=== PATIENT | female | born 1990 | race Caucasian/White ===

== ENCOUNTER 2017-11-06 11:33 | Emergency (ER) | payer MEDICAID, OTHER ==
[~2017-11-06] VITALS: Ht 170.2 cm; Wt 127.0 kg
[2017-11-06] MEDS ORDERED: IPRATROPIUM BROMIDE (0.02%) 0.5MG/2.5ML NEB HHN STA (11:52)
[2017-11-06] MEDS ORDERED: ALBUTEROL (0.083%) 2.5MG/3ML NEB HHN STA (11:52)
[2017-11-06] MEDS ORDERED: METHYLPREDNISOLONE SOD SUCC 125 MG/2 ML VIAL IV STA (11:52)
[2017-11-06 16:06] VITALS: BP 111/58
== END 2017-11-06 16:11 | disposition home or self-care (01) ==
LOC: ER 11:44
DX: J45.901 Unspecified asthma with (acute) exacerbation (principal); I10 Essential (primary) hypertension; I51.7 Cardiomegaly
CPT/HCPCS: 71045; 81025; 93005; 94644; 96374; 99285; J2930; J7611; Z7610

== ENCOUNTER 2017-12-28 11:57 | Emergency (ER) | payer OTHER ==
[~2017-12-28] VITALS: Ht 170.2 cm; Wt 128.0 kg
[2017-12-28] MEDS ORDERED: IBUPROFEN 600MG TABLET PO STA (13:05)
[2017-12-28] MEDS ORDERED: SODIUM CHLORIDE 0.9% 1,000 ML IV ONE (13:05)
[2017-12-28 13:30] LABS: CLARITY URINE CLEAR (CLEAR); COLOR URINE YELLOW (YELLOW); KETONES URINE NEGATIVE (NEGATIVE); LEUKOCYTE ESTERASE URINE 1+ (NEGATIVE); NITRITE URINE NEGATIVE (NEGATIVE); OCCULT BLOOD URINE TRACE (NEGATIVE); PH URINE 6.5 (4.5-8.0); PROTEIN URINE 2+ (NEGATIVE); SPECIFIC GRAVITY URINE 1.016 (1.005-1.030)
[2017-12-28 13:31] LABS: BASOPHILS % 0.7 % (0.0-2.0); EOSINOPHILS % 1.4 % (0.0-5.0); HEMATOCRIT. 39.7 % (36.0-48.0); HEMOGLOBIN. 14.2 g/dL (12.0-16.0); LYMPHOCYTES % 22.9 % (20.0-50.0); MEAN CORPUSCULAR HEMOGLOBIN 31.3 pg (28.0-32.0); MEAN CORPUSCULAR VOLUME 87.8 fL (81.0-99.0); MEAN PLATELET VOLUME 8.9 fl (7.4-10.4); MONOCYTES % 3.3 % (2.0-8.0); NEUTROPHILS % 71.7 % (40.0-76.0); PLATELET 269 x1000/uL (130-400); RED BLOOD CELL COUNT 4.52 mill/uL (4.2-5.4); RED CELL DISTRIBUTION WIDTH 12.7 % (11.6-14.6)
[2017-12-28 13:35] LABS: PROTHROMBIN TIME 9.9 sec (9.1-11.1)
[2017-12-28 13:36] LABS: CHLORIDE 104 mEq/L (98-107)
[2017-12-28 15:30] VITALS: BP 138/82
== END 2017-12-28 16:28 | disposition home or self-care (01) ==
LOC: ER 11:57
DX: N10 Acute pyelonephritis (principal); J45.909 Unspecified asthma, uncomplicated; I10 Essential (primary) hypertension; E03.9 Hypothyroidism, unspecified
CPT/HCPCS: 36415; 80053; 81003; 81025; 83690; 85025; 85610; 87077; 87086; 87186; 99284; J7030

== ENCOUNTER 2018-01-29 17:52 | Emergency (ER) | payer OTHER ==
[~2018-01-29] VITALS: Ht 170.2 cm; Wt 124.9 kg
[2018-01-29 20:38] VITALS: BP 138/87
== END 2018-01-29 21:10 | disposition home or self-care (01) ==
LOC: ER 21:06
DX: J45.909 Unspecified asthma, uncomplicated (principal); I10 Essential (primary) hypertension; E03.9 Hypothyroidism, unspecified
CPT/HCPCS: 99283

== ENCOUNTER 2018-02-01 06:19 | Emergency (ER) | payer OTHER ==
[~2018-02-01] VITALS: Ht 170.2 cm; Wt 124.0 kg
[2018-02-01] MEDS ORDERED: METHYLPREDNISOLONE SOD SUCC 125 MG/2 ML VIAL IM STA (06:36)
[2018-02-01] MEDS ORDERED: IPRATROPIUM BROMIDE (0.02%) 0.5MG/2.5ML NEB HHN STA (06:36)
[2018-02-01] MEDS ORDERED: ALBUTEROL (0.083%) 2.5MG/3ML NEB HHN STA (06:36)
[2018-02-01 08:50] VITALS: BP 138/79
== END 2018-02-01 09:11 | disposition home or self-care (01) ==
LOC: ER 06:19
DX: J45.901 Unspecified asthma with (acute) exacerbation (principal); I10 Essential (primary) hypertension; E03.9 Hypothyroidism, unspecified; J45.909 Unspecified asthma, uncomplicated
CPT/HCPCS: 94640; 96372; 99283; J2930; J7611

== ENCOUNTER 2018-05-26 03:44 | Emergency (ER) | payer MEDICAID, OTHER ==
[~2018-05-26] VITALS: Ht 170.2 cm; Wt 125.4 kg
[2018-05-26] MEDS ORDERED: PREDNISONE 20MG TABLET PO ONE (06:45)
[2018-05-26] MEDS ORDERED: ALBUTEROL (0.083%) 2.5MG/3ML NEB HHN ONE (06:45)
[2018-05-26 09:04] VITALS: BP 132/68
== END 2018-05-26 09:07 | disposition home or self-care (01) ==
LOC: ER 07:39
DX: J45.901 Unspecified asthma with (acute) exacerbation (principal); E03.9 Hypothyroidism, unspecified
CPT/HCPCS: 94640; 99283; J7512; J7611

== ENCOUNTER 2018-06-04 06:42 | Emergency (ER) | payer MEDICAID ==
[~2018-06-04] VITALS: Ht 172.7 cm; Wt 90.0 kg
[2018-06-04] MEDS ORDERED: IPRATROPIUM BROMIDE (0.02%) 0.5MG/2.5ML NEB HHN STA (07:57)
[2018-06-04] MEDS ORDERED: PREDNISONE 20MG TABLET PO STA (07:57)
[2018-06-04] MEDS: ALBUTEROL (0.083%) 2.5MG/3ML NEB HHN SCH ×2 (08:10→08:35)
[2018-06-04 10:14] VITALS: BP 133/75
== END 2018-06-04 10:15 | disposition home or self-care (01) ==
LOC: ER 06:42
DX: J45.901 Unspecified asthma with (acute) exacerbation (principal); I10 Essential (primary) hypertension; E03.9 Hypothyroidism, unspecified
CPT/HCPCS: 71045; 81025; 94640; 99285; J7512; J7611

== ENCOUNTER 2018-08-28 20:19 | Emergency (ER) | payer MEDICAID ==
[~2018-08-28] VITALS: Ht 170.2 cm; Wt 125.4 kg
[2018-08-28] MEDS ORDERED: ALBUTEROL (0.083%) 2.5MG/3ML NEB HHN NR (23:09)
[2018-08-28] MEDS ORDERED: METHYLPREDNISOLONE SOD SUCC 125 MG/2 ML VIAL IM NR (23:09)
[2018-08-28] MEDS ORDERED: IPRATROPIUM BROMIDE (0.02%) 0.5MG/2.5ML NEB HHN NR (23:09)
[2018-08-29 00:29] VITALS: BP 145/72
== END 2018-08-29 00:29 | disposition home or self-care (01) ==
LOC: ER 20:19
DX: J45.901 Unspecified asthma with (acute) exacerbation (principal)
CPT/HCPCS: 81025; 94640; 96372; 99283; J2930; J7611

== ENCOUNTER 2018-11-19 19:07 | Emergency (ER) | payer SELFPAY ==
[~2018-11-19] VITALS: Ht 165.1 cm; Wt 127.0 kg
[2018-11-19] MEDS ORDERED: KETOROLAC 15MG/ML VIAL IM ONE (20:15)
[2018-11-19 22:02] LABS: BASOPHILS % 0.5 % (0.0-2.0); EOSINOPHILS % 1.1 % (0.0-5.0); HEMATOCRIT. 40.3 % (36.0-48.0); HEMOGLOBIN. 14.2 g/dL (12.0-16.0); MEAN CORPUSCULAR HEMOGLOBIN 31.2 pg (28.0-32.0); MEAN CORPUSCULAR VOLUME 88.5 fL (81.0-99.0); MEAN PLATELET VOLUME 8.7 fl (7.4-10.4); NEUTROPHILS % 73.4 % (40.0-76.0); PLATELET 250 x1000/uL (130-400); RED BLOOD CELL COUNT 4.55 mill/uL (4.2-5.4); RED CELL DISTRIBUTION WIDTH 12.9 % (11.6-14.6)
[2018-11-19 22:04] LABS: CHLORIDE 106 mEq/L (98-107)
[2018-11-19 22:29] LABS: CLARITY URINE CLOUDY (CLEAR); COLOR URINE YELLOW (YELLOW); KETONES URINE NEGATIVE (NEGATIVE); LEUKOCYTE ESTERASE URINE NEGATIVE (NEGATIVE); NITRITE URINE NEGATIVE (NEGATIVE); OCCULT BLOOD URINE NEGATIVE (NEGATIVE); PROTEIN URINE NEGATIVE (NEGATIVE); SPECIFIC GRAVITY URINE 1.022 (1.005-1.030)
[2018-11-19] MEDS ORDERED: IOHEXOL-300 100 ML BOTTLE ONE (23:27)
[2018-11-20 00:41] VITALS: BP 123/80
== END 2018-11-20 00:47 | disposition home or self-care (01) ==
LOC: ER 19:07
DX: S20.212A Contusion of left front wall of thorax, initial encounter (principal); S30.1XXA Contusion of abdominal wall, initial encounter; I10 Essential (primary) hypertension; J45.909 Unspecified asthma, uncomplicated; E03.9 Hypothyroidism, unspecified; V43.52XA Car driver injured in collision with other type car in traffic accident, initial encounter; Y93.89 Activity, other specified; Y92.414 Local residential or business street as the place of occurrence of the external cause
CPT/HCPCS: 36415; 71045; 74177; 80053; 81003; 81025; 85025; 93005; 96372; 99284; J1885; Q9967

== ENCOUNTER 2019-02-22 11:01 | Emergency (ER) | payer SELFPAY ==
[~2019-02-22] VITALS: Ht 162.6 cm; Wt 127.0 kg
[2019-02-22] MEDS ORDERED: IPRATROPIUM BROMIDE (0.02%) 0.5MG/2.5ML NEB HHN STA (11:26)
[2019-02-22] MEDS ORDERED: PREDNISONE 20MG TABLET PO STA (11:26)
[2019-02-22] MEDS ORDERED: ALBUTEROL (0.083%) 2.5MG/3ML NEB HHN STA (11:26)
[2019-02-22 13:28] VITALS: BP 129/74
== END 2019-02-22 13:44 | disposition home or self-care (01) ==
LOC: ER 11:46
DX: J45.901 Unspecified asthma with (acute) exacerbation (principal); I10 Essential (primary) hypertension; E03.9 Hypothyroidism, unspecified
CPT/HCPCS: 94644; 99285; J7512; J7611; Z7610

== ENCOUNTER 2020-04-21 02:45 | Emergency (ER) | payer SELFPAY ==
[~2020-04-21] VITALS: Ht 170.2 cm; Wt 127.0 kg
[2020-04-21] MEDS ORDERED: PREDNISONE 20MG TABLET PO STA (03:53)
[2020-04-21] MEDS ORDERED: IPRATROPIUM BROMIDE (0.02%) 0.5MG/2.5ML NEB HHN STA (03:53)
[2020-04-21] MEDS ORDERED: ALBUTEROL (0.083%) 2.5MG/3ML NEB HHN STA (03:53)
[2020-04-21 06:51] VITALS: BP 137/92
== END 2020-04-21 07:10 | disposition home or self-care (01) ==
LOC: ER 02:45
DX: J45.901 Unspecified asthma with (acute) exacerbation (principal); I10 Essential (primary) hypertension; E03.9 Hypothyroidism, unspecified; E66.9 Obesity, unspecified; Z68.41 Body mass index [BMI] 40.0-44.9, adult
CPT/HCPCS: 71045; 81025; 94640; 99283; J7512; Z7610

== ENCOUNTER 2020-09-04 05:50 | Emergency (ER) | payer SELFPAY ==
[~2020-09-04] VITALS: Ht 170.2 cm; Wt 132.0 kg
[2020-09-04 05:59] VITALS: BP 173/117
== END 2020-09-04 10:01 | disposition left against medical advice (07) ==
LOC: ER 05:50
DX: H92.01 Otalgia, right ear (principal); Z53.21 Procedure and treatment not carried out due to patient leaving prior to being seen by health care provider

== ENCOUNTER 2024-07-28 04:48 | Inpatient (IN) | payer OTHER ==
[~2024-07-28] VITALS: Ht 170.2 cm; Wt 141.1 kg
[2024-07-28] MEDS ORDERED: DEXAMETHASONE 2MG TABLET PO ONE (05:30)
[2024-07-28 05:32] VITALS: PULSE 101; RESP 16; O2SAT 98
[2024-07-28] MEDS: ALBUTEROL (0.5%) 2.5MG/0.5ML NEB HHN ONE (05:32)
[2024-07-28] MEDS: IPRATROPIUM BROMIDE (0.02%) 0.5MG/2.5ML NEB HHN ONE (05:32)
[2024-07-28 06:02] LABS: BASOPHILS % 0.9 % (0.0-2.0); EOSINOPHILS % 1.5 % (0.0-5.0); HEMATOCRIT. 44.1 % (36.0-48.0); HEMOGLOBIN. 15.2 g/dL (12.0-16.0); LYMPHOCYTES % 24.6 % (20.0-50.0); MEAN CORPUSCULAR HEMOGLOBIN 30.8 pg (28.0-32.0); MEAN CORPUSCULAR HGB CONC 34.6 g/dL (31.0-37.0); MEAN CORPUSCULAR VOLUME 89.1 fL (81.0-99.0); MEAN PLATELET VOLUME 8.7 fl (7.4-10.4); MONOCYTES % 4.3 % (2.0-8.0); NEUTROPHILS % 68.7 % (40.0-76.0); PLATELET 247 x1000/uL (130-400); RED BLOOD CELL COUNT 4.95 mill/uL (4.2-5.4); RED CELL DISTRIBUTION WIDTH 13.4 % (11.6-14.6); WHITE BLOOD COUNT 9.1 x1000/uL (4.5-11.0)
[2024-07-28 06:15] LABS: CHLORIDE 106 mEq/L (98-107); POTASSIUM 3.3 mEq/L (3.5-5.1); SODIUM 140 mEq/L (136-145)
[2024-07-28 06:16] LABS: CARBON DIOXIDE 24 mEq/L (21-32)
[2024-07-28 06:17] LABS: CALCIUM 8.7 mg/dL (8.7-10.4)
[2024-07-28] MEDS: LACTATED RINGERS 1,000 ML IV SCH (06:17)
[2024-07-28] MEDS: MAGNESIUM 2 G PREMIX 50 ML IV ONE (06:18)
[2024-07-28 06:22] LABS: GLUCOSE 147 mg/dL (70-105); UREA NITROGEN BLOOD 10 mg/dL (9-23)
[2024-07-28 06:23] LABS: TROPONIN I HIGH SENSITIVITY 23 ng/L (3.0-34)
[2024-07-28 06:25] LABS: CREATININE 0.7 mg/dL (0.6-1.0)
[2024-07-28] MEDS: DEXAMETHASONE 4MG TABLET PO NR (06:25)
[2024-07-28 06:30] LABS: HCG SCREEN NEGATIVE
[2024-07-28 08:06] LABS: TROPONIN I HIGH SENSITIVITY 23 ng/L (3.0-34)
[2024-07-28] MEDS ORDERED: IPRATROPIUM/ALBUTEROL 0.5-3(2.5)MG/3ML NEB HHN PRN (10:30)
[2024-07-28] MEDS ORDERED: ACETAMINOPHEN 325MG TABLET PO PRN (10:30)
[2024-07-28] MEDS ORDERED: ONDANSETRON HCL 4MG/2ML INJ IV PRN (10:30)
[2024-07-28] MEDS ORDERED: DEXTROSE 50% WATER 50ML SYRINGE IV PRN (10:30)
[2024-07-28 11:02] LABS: LDL CHOLESTEROL 153 mg/dL (5-100); TRIGLYCERIDE 125 mg/dL (0-150)
[2024-07-28 11:03] LABS: ALANINE AMINOTRANSFERASE 63 IU/L (10-49); ALBUMIN 3.7 g/dL (3.2-4.8); ASPARTATE AMINOTRANSFERASE 61 IU/L (<34); BILIRUBIN DIRECT 0.2 mg/dL (<=3.0); CHOLESTEROL 215 mg/dL (<200); HDL CHOLESTEROL 42 mg/dL (>65)
[2024-07-28 11:04] LABS: BILIRUBIN TOTAL 0.7 mg/dL (0.1-1.0); PROTEIN TOTAL 7.1 g/dL (6.0-8.3)
[2024-07-28] MEDS: MAGNESIUM 2 G PREMIX 50 ML IV NR (11:30)
[2024-07-28] MEDS: POTASSIUM CHLORIDE 20MEQ TABLET SR PO NR (12:07)
[2024-07-28] MEDS: AMLODIPINE 10MG TABLET PO SCH (12:07)
[2024-07-28] MEDS: CLONIDINE 0.1MG TABLET PO PRN (12:46)
[2024-07-28] MEDS: BLOOD SUGAR DIAGNOSTIC STRIP TEST SCH (13:00)
[2024-07-28 13:07] VITALS: PULSE 94; RESP 17; O2SAT 99
[2024-07-28 17:40] VITALS: BP 119/65; PULSE 109; RESP 22; TEMP 37
[2024-07-28] MEDS ORDERED: FLUT1BLS8 IH (18:52)
[2024-07-28 20:00] VITALS: BP 119/67; PULSE 105; RESP 20; TEMP 35.8; O2SAT 97
[2024-07-28] MEDS: IPRATROPIUM/ALBUTEROL 0.5-3(2.5)MG/3ML NEB HHN SCH (22:03)
[2024-07-28] MEDS: BUDESONIDE 0.5MG/2ML NEB HHN SCH (22:06)
[2024-07-28 22:09] VITALS: PULSE 91; RESP 16; O2SAT 97
[2024-07-29] VITALS (10 sets, daily range): BP systolic 117–146; BP diastolic 66–92; PULSE 86–108; RESP 14–18; TEMP 36.1–37.3; O2SAT 94–99
[2024-07-29 06:15] LABS: BASOPHILS % 0.1 % (0.0-2.0); HEMATOCRIT. 41.1 % (36.0-48.0); HEMOGLOBIN. 14.1 g/dL (12.0-16.0); LYMPHOCYTES % 14.2 % (20.0-50.0); MEAN CORPUSCULAR HEMOGLOBIN 30.2 pg (28.0-32.0); MEAN CORPUSCULAR HGB CONC 34.5 g/dL (31.0-37.0); MEAN CORPUSCULAR VOLUME 87.7 fL (81.0-99.0); MEAN PLATELET VOLUME 9.1 fl (7.4-10.4); MONOCYTES % 4.8 % (2.0-8.0); NEUTROPHILS % 80.9 % (40.0-76.0); PLATELET 259 x1000/uL (130-400); RED BLOOD CELL COUNT 4.68 mill/uL (4.2-5.4); RED CELL DISTRIBUTION WIDTH 13.5 % (11.6-14.6); WHITE BLOOD COUNT 13.3 x1000/uL (4.5-11.0)
[2024-07-29 06:16] LABS: CALCIUM 9.4 mg/dL (8.7-10.4); CARBON DIOXIDE 24 mEq/L (21-32); CHLORIDE 104 mEq/L (98-107); POTASSIUM 3.8 mEq/L (3.5-5.1); SODIUM 139 mEq/L (136-145)
[2024-07-29 06:22] LABS: CREATININE 0.6 mg/dL (0.6-1.0); GLUCOSE 156 mg/dL (70-105); UREA NITROGEN BLOOD 15 mg/dL (9-23)
[2024-07-29] MEDS: PREDNISONE 20MG TABLET PO SCH (08:42)
[2024-07-29 10:09] LABS: THYROID STIMULATING HORMONE 2.04 uIU/mL (0.55-4.78)
[2024-07-29 10:11] LABS: T4 FREE 1.37 ng/dL (0.89-1.76)
[2024-07-29 17:54] LABS: LACTIC ACID 3.2 mmol/L (0.4-2.0)
[2024-07-29 19:18] LABS: INFLUENZA TYPE A Presumptive Negative (Pres. Neg.); INFLUENZA TYPE B Presumptive Negative (Pres. Neg.)
[2024-07-29] MEDS: DOXYCYCLINE 100MG/100ML 100 ML IV SCH (20:20)
[2024-07-29] MEDS: CEFTRIAXONE 1GM/50ML 50 ML IV SCH (20:21)
[2024-07-29] MEDS: IPRATROPIUM BROMIDE (0.02%) 0.5MG/2.5ML NEB HHN SCH (21:29)
[2024-07-30] VITALS (8 sets, daily range): BP systolic 114–166; BP diastolic 71–102; PULSE 51–108; RESP 14–20; TEMP 36.2–36.7; O2SAT 94–97
[2024-07-30 07:36] LABS: HEMATOCRIT 49.5 % (36.0-48.0); HEMOGLOBIN 16.9 g/dL (12.0-16.0); MEAN CORPUSCULAR HEMOGLOBIN 30.2 pg (28.0-32.0); MEAN CORPUSCULAR HGB CONC 34.2 g/dL (31.0-37.0); MEAN CORPUSCULAR VOLUME 88.4 fL (81.0-99.0); PLATELET 316 x1000/uL (130-400); RED CELL DISTRIBUTION WIDTH 13.6 % (11.6-14.6); WHITE BLOOD COUNT 16.8 x1000/uL (4.5-11.0)
[2024-07-30 07:38] LABS: CHLORIDE 101 mEq/L (98-107); POTASSIUM 3.5 mEq/L (3.5-5.1); SODIUM 139 mEq/L (136-145)
[2024-07-30 07:40] LABS: CARBON DIOXIDE 24 mEq/L (21-32)
[2024-07-30 07:41] LABS: CALCIUM 9.7 mg/dL (8.7-10.4)
[2024-07-30 07:45] LABS: CREATININE 0.7 mg/dL (0.6-1.0)
[2024-07-30 07:46] LABS: GLUCOSE 102 mg/dL (70-105); UREA NITROGEN BLOOD 15 mg/dL (9-23)
[2024-07-30 07:47] LABS: ALANINE AMINOTRANSFERASE 68 IU/L (10-49); ALBUMIN 4.1 g/dL (3.2-4.8)
[2024-07-30 07:48] LABS: ASPARTATE AMINOTRANSFERASE 45 IU/L (<34); BILIRUBIN TOTAL 0.7 mg/dL (0.1-1.0); PROTEIN TOTAL 7.8 g/dL (6.0-8.3)
[2024-07-30 11:18] LABS: LACTIC ACID 2.8 mmol/L (0.4-2.0)
[2024-07-30 13:12] LABS: CLARITY URINE CLOUDY (CLEAR); COLOR URINE YELLOW (YELLOW); GLUCOSE URINE NEGATIVE (NEGATIVE); KETONES URINE NEGATIVE (NEGATIVE); LEUKOCYTE ESTERASE URINE 2+ (NEGATIVE); NITRITE URINE NEGATIVE (NEGATIVE); OCCULT BLOOD URINE NEGATIVE (NEGATIVE); PH URINE 6.5 (4.5-8.0); PROTEIN URINE NEGATIVE (NEGATIVE); SPECIFIC GRAVITY URINE 1.011 (1.005-1.030); UROBILINOGEN URINE 0.2 E.U./dL (0.2-1.0)
[2024-07-30 13:26] LABS: BACTERIA URINE 2+; RBC URINE 0-2 /hpf (0-2); SQUAMOUS EPITHELIAL CELL URINE 3+ /lpf (RARE/1+); YEAST URINE NONE SEEN
[2024-07-30 13:27] LABS: *AMPHETAMINES SCREEN URINE NEGATIVE (NEGATIVE)
[2024-07-30 13:28] LABS: *BARBITURATES SCREEN URINE NEGATIVE (NEGATIVE); *BENZODIAZEPINES SCREEN URINE NEGATIVE (NEGATIVE); *COCAINE SCREEN URINE NEGATIVE (NEGATIVE); CANNABINOID URINE SCREEN NEGATIVE (NEGATIVE); ECSTASY MDMA SCREEN URINE NEGATIVE (NEGATIVE); METHADONE URINE SCREEN NEGATIVE (NEGATIVE); OPIATES URINE SCREEN NEGATIVE (NEGATIVE); PHENCYCLIDINE URINE SCREEN NEGATIVE (NEGATIVE)
[2024-07-30] MEDS: LOSARTAN 25 MG TABLET PO SCH (15:10)
== END 2024-07-30 23:20 | disposition short-term general hospital (02) | DRG 189 ==
LOC: ER 04:48 → EDBEDREQ 07:37 → EDBEDREQTM 08:52 → 7WST 17:36
PROVIDERS: ADMIT Hospitalist; ATTEND Hospitalist
DX: J96.01 Acute respiratory failure with hypoxia (principal); J18.9 Pneumonia, unspecified organism; J45.901 Unspecified asthma with (acute) exacerbation; Z68.42 Body mass index [BMI] 45.0-49.9, adult; E66.9 Obesity, unspecified; I11.9 Hypertensive heart disease without heart failure; E87.6 Hypokalemia; E83.42 Hypomagnesemia; R73.03 Prediabetes; E03.9 Hypothyroidism, unspecified; E78.5 Hyperlipidemia, unspecified; T50.995A Adverse effect of other drugs, medicaments and biological substances, initial encounter; D72.829 Elevated white blood cell count, unspecified; Z79.899 Other long term (current) drug therapy; Y92.89 Other specified places as the place of occurrence of the external cause
CPT/HCPCS: 36415; 71045; 71275; 80048; 80053; 80061; 80076; 80305; 81003; 82962; 83036; 83605; 83735; 83880; 84145; 84439; 84443; 84484; 84703; 85025; 85027; 85379; 87420; 87804; 93005; 93970; 94070; 94640; 94664; 94760; 99291; J0696; J3475; J3490; J7512; J7626; J8540